=== PATIENT | male | born 1970 | race Two or more races ===

== ENCOUNTER 2018-08-03 17:10 | Emergency (ER) | payer SELFPAY ==
[~2018-08-03] VITALS: Ht 167.6 cm; Wt 90.0 kg
[2018-08-03] MEDS ORDERED: COLCHICINE 0.6 MG TABLET PO ONE ×2 (17:30→19:30)
[2018-08-03] MEDS ORDERED: COLCHICINE 0.6 MG TABLET ONE ×2 (17:47→18:38)
[2018-08-03] MEDS ORDERED: LIDOCAINE-MPF 1%, 5ML ONE (18:07)
[2018-08-03] MEDS ORDERED: LIDOCAINE-MPF 1%, 5ML INFIL ONE (18:30)
--- NOTE | 2018-08-03 18:40 | NUR ---
Colchicine 0.6mg administered po x1 now as ordered by Мария Junior verbal order read back and verified.
--- NOTE | 2018-08-03 19:15 | NUR ---
report received from ESE Goldstein. pt resting on gurney, ice pack in place to rt knee. pt a&o, resps even and unlabored. awaiting lab results at this time.
--- NOTE | 2018-08-03 19:35 | NUR ---
report to break ESE Estrella.
[2018-08-03 20:24] VITALS: BP 119/75
--- NOTE | 2018-08-03 20:33 | NUR ---
pt given dc instructions and script. amber bandage applied by jeanine li cms intact s/p wrap. pt given fitted crutches, demonstrates appropriate use. pt a&o, resps even and unlabored. pt given dc instructions and script, educated regarding colcrys rx. pt amb to dc desk with crutch gait, accompanied by family. no complaint and nadn at dc.
--- NOTE | 2018-08-04 07:46 | NUR ---
NOTIFIED BY LAB OF CHANGE IN SYNOVIAL CRYSTAL RESULTS. ED MD MEEK MADE AWARE. PT TREATED FOR GOUT BY ED RENETTA, PER ED , PT TREATED APPROPRIATELY. NO FURTHER FOLLOW-UP REQUIRED PER DR. MEEK.
== END 2018-08-03 20:34 | disposition home or self-care (01) ==
LOC: ED 18:26
DX: M13.161 Monoarthritis, not elsewhere classified, right knee (principal); M25.461 Effusion, right knee
CPT/HCPCS: 20610; 85810; 87070; 87075; 87205; 89050; 89060; 99284

== ENCOUNTER 2019-09-21 13:04 | Inpatient (IN) | payer BC, OTHER ==
[~2019-09-21] VITALS: Ht 167.6 cm; Wt 108.7 kg
--- NOTE | 2019-09-21 13:30 | NUR ---
PT WITH SORE THROAT AND COUGH X 2 MONTHS. PT DENIES FEVERS. NO REPORTED SICK CONTACTS.
[2019-09-21] MEDS ORDERED: KETOROLAC 30 MG/1 ML ONE (13:39)
[2019-09-21] MEDS ORDERED: DEXAMETHASONE 4 MG/ML, 5ML ONE (13:39)
[2019-09-21] MEDS ORDERED: SODIUM CHLORIDE FLUSH 10ML SYR IVF ONE (14:00)
[2019-09-21] MEDS ORDERED: KETOROLAC 30 MG/1 ML IVPush ONE (14:00)
[2019-09-21] MEDS ORDERED: SODIUM CHLORIDE 0.9% 1,000ML IVBOLUS ONE (14:00)
[2019-09-21] MEDS ORDERED: DEXAMETHASONE 4 MG/ML, 1ML IV ONE (14:00)
[2019-09-21 14:08] LABS: BASOPHILS # (AUTO) 0.04 x10^3/uL (0-0.1); BASOPHILS % (AUTO) 0 % (0-1); EOSINOPHILS % (AUTO) 0 % (1-7); LYMPHOCYTES # (AUTO) 1.17 x10^3/uL (1-3.4); LYMPHOCYTES % (AUTO) 8 % (22-44); MD NO; MEAN CORPUSCULAR HEMOGLOBIN 28.9 pg (27.5-34.5); MEAN CORPUSCULAR HGB CONC 33.2 g/dL (33.2-36.2); MEAN CORPUSCULAR VOLUME 86.9 fL (81-97); MEAN PLATELET VOLUME 8.7 fL (7.4-10.4); MONOCYTES % (AUTO) 5 % (2-9); NEUTROPHILS # (AUTO) 13.61 x10^3/uL (1.8-6.8); NEUTROPHILS % (AUTO) 88 % (42-75); PLATELET COUNT 155 x10^3/uL (130-400); RED BLOOD COUNT 5.95 x10^6/uL (4.38-5.82); RED CELL DISTRIBUTION WIDTH 13.6 % (9.4-14.8)
[2019-09-21 14:20] LABS: ALBUMIN 3.3 g/dL (3.4-5.0); ANION GAP 10 mmol/L (5-15); CALCIUM 8.3 mg/dL (8.5-10.1); CHLORIDE 100 mmol/L (98-107); CREATININE 1.45 mg/dL (0.7-1.3)
[2019-09-21] MEDS ORDERED: AMPICILLIN/SULBACTAM 3 GM in SODIUM CHLORIDE 0.9% 100 ML IV ONE (15:00)
--- NOTE | 2019-09-21 15:54 | NUR ---
PT TO IMAGING AT THIS TIME
[2019-09-21] MEDS ORDERED: OMNIPAQUE 350 MG/ML, 100ML BOTTLE ONE (16:13)
[2019-09-21] MEDS ORDERED: SODIUM CHLORIDE 0.9% 1,000 ML IV SCH (17:55)
[2019-09-21] MEDS ORDERED: BISACODYL 10 MG SUPP PR PRN (18:00)
[2019-09-21] MEDS ORDERED: ONDANSETRON 2MG/ML, 2ML IVPush PRN (18:00)
--- NOTE | 2019-09-21 18:40 | NUR ---
PT TO BE ADMITTED, PT UPDAED ON POC BY ERMD. MEDICATED PER MAR, NAD NOTED
--- NOTE | 2019-09-21 18:55 | NUR ---
report from ESE faye
--- NOTE | 2019-09-21 19:00 | NUR ---
PT INFORMED OF NPO STATUS. PT VERBALIZED UNDERSTANDING. PT UP TO BATHROOM INDEPENDENTLY WITH STEADY GAIT.
[2019-09-21] MEDS: AMPICILLIN/SULBACTAM 3 GM in SODIUM CHLORIDE 0.9% 100 ML IV SCH (19:09)
--- NOTE | 2019-09-21 19:40 | NUR ---
REPORT TO FLOOR ESE HEBERT
[2019-09-21 20:39] VITALS: BP 150/106
[2019-09-21] MEDS: KETOROLAC 30 MG/1 ML IV PRN (20:48)
[2019-09-21] MEDS: DEXAMETHASONE 4 MG/ML, 1ML IVPush SCH (21:04)
[2019-09-22] MEDS: KETOROLAC 30 MG/1 ML IV PRN ×2 (03:10→10:51)
[2019-09-22] MEDS: DEXAMETHASONE 4 MG/ML, 1ML IVPush SCH ×4 (03:10→21:20)
[2019-09-22 03:22] VITALS: BP 142/87
[2019-09-22] MEDS: AMPICILLIN/SULBACTAM 3 GM in SODIUM CHLORIDE 0.9% 100 ML IV SCH ×5 (06:15→23:47)
[2019-09-22 06:25] LABS: MEAN CORPUSCULAR HGB CONC 32.8 g/dL (33.2-36.2); MEAN CORPUSCULAR VOLUME 88.3 fL (81-97); MEAN PLATELET VOLUME 8.3 fL (7.4-10.4); PLATELET COUNT 157 x10^3/uL (130-400); RED BLOOD COUNT 5.83 x10^6/uL (4.38-5.82); RED CELL DISTRIBUTION WIDTH 13.4 % (9.4-14.8)
[2019-09-22 06:39] LABS: ANION GAP 8 mmol/L (5-15); CALCIUM 8.4 mg/dL (8.5-10.1); CHLORIDE 101 mmol/L (98-107)
[2019-09-22 06:40] LABS: CREATININE 1.36 mg/dL (0.7-1.3)
[2019-09-22 07:27] LABS: MD YES
[2019-09-22 07:29] LABS: BAND#(MANUAL) 5.74 x10^3/uL; BANDS%(MANUAL) 31 % (0-7); LYMPH#(MANUAL) 0.74 x10^3/uL (1-3.4); LYMPHS% (MANUAL) 4 % (22-44); METAMYELOCYTES# (MANUAL) 0.56 x10^3/uL (0-0); METAMYELOCYTES% (MANUAL) 3 % (0-1); SEG#(MANUAL) 11.47 x10^3/uL (1.8-6.8); SEGS% (MANUAL) 62 % (42-75)
[2019-09-22 07:30] LABS: <PLATELET ESTIMATE> ADEQUATE; <PLT MORPHOLOGY> NORMAL PLT MORPH; <RBC MORPHOLOGY> NORMAL
[2019-09-22 09:56] VITALS: BP 119/76
[2019-09-22] MEDS: INSULIN LISPRO 100 UNITS/ML, PEN SQ-INSULIN SCH ×3 (13:05→21:21)
[2019-09-22 13:33] VITALS: BP 139/74
[2019-09-22] MEDS: CLINDAMYCIN PMX 900MG/50ML 50 ML IV SCH ×2 (13:40→21:20)
[2019-09-22] MEDS: SODIUM CHLORIDE 0.9% 1,000 ML IV SCH (17:30)
[2019-09-22 21:29] VITALS: BP 127/84
[2019-09-23 00:40] VITALS: BP 126/95
[2019-09-23] MEDS: KETOROLAC 30 MG/1 ML IV PRN (01:16)
[2019-09-23] MEDS: DEXAMETHASONE 4 MG/ML, 1ML IVPush SCH ×4 (03:04→18:47)
[2019-09-23] MEDS: SODIUM CHLORIDE 0.9% 1,000 ML IV SCH ×2 (03:07→16:17)
[2019-09-23] MEDS: CLINDAMYCIN PMX 900MG/50ML 50 ML IV SCH ×3 (05:16→21:29)
[2019-09-23] MEDS: AMPICILLIN/SULBACTAM 3 GM in SODIUM CHLORIDE 0.9% 100 ML IV SCH ×4 (06:18→23:06)
[2019-09-23 06:23] LABS: BASOPHILS # (AUTO) 0.08 x10^3/uL (0-0.1); BASOPHILS % (AUTO) 1 % (0-1); EOSINOPHILS # (AUTO) 0.08 x10^3/uL (0-0.4); EOSINOPHILS % (AUTO) 1 % (1-7); LYMPHOCYTES # (AUTO) 1.16 x10^3/uL (1-3.4); LYMPHOCYTES % (AUTO) 7 % (22-44); MD NO; MEAN CORPUSCULAR HEMOGLOBIN 28.8 pg (27.5-34.5); MEAN CORPUSCULAR VOLUME 87.2 fL (81-97); MEAN PLATELET VOLUME 9.1 fL (7.4-10.4); MONOCYTES # (AUTO) 0.31 x10^3/uL (0.2-0.8); MONOCYTES % (AUTO) 2 % (2-9); NEUTROPHILS % (AUTO) 91 % (42-75); PLATELET COUNT 154 x10^3/uL (130-400); RED BLOOD COUNT 5.46 x10^6/uL (4.38-5.82); RED CELL DISTRIBUTION WIDTH 13.5 % (9.4-14.8)
[2019-09-23 06:30] LABS: ANION GAP 6 mmol/L (5-15); CALCIUM 8.1 mg/dL (8.5-10.1); CHLORIDE 106 mmol/L (98-107); CREATININE 1.02 mg/dL (0.7-1.3)
[2019-09-23] MEDS: INSULIN LISPRO 100 UNITS/ML, PEN SQ-INSULIN SCH ×4 (07:37→21:30)
[2019-09-23 08:33] VITALS: BP 127/94
[2019-09-23 13:40] VITALS: BP 130/83
[2019-09-23 19:07] VITALS: BP 130/92
[2019-09-24] MEDS: DEXAMETHASONE 4 MG/ML, 1ML IVPush SCH ×4 (01:21→19:56)
[2019-09-24 01:26] VITALS: BP 139/86
[2019-09-24] MEDS: AMPICILLIN/SULBACTAM 3 GM in SODIUM CHLORIDE 0.9% 100 ML IV SCH ×4 (04:57→22:23)
[2019-09-24] MEDS: SODIUM CHLORIDE 0.9% 1,000 ML IV SCH (05:30)
[2019-09-24] MEDS: CLINDAMYCIN PMX 900MG/50ML 50 ML IV SCH ×3 (05:34→21:17)
[2019-09-24] MEDS: INSULIN LISPRO 100 UNITS/ML, PEN SQ-INSULIN SCH ×4 (07:00→20:31)
[2019-09-24 07:06] LABS: MEAN CORPUSCULAR HGB CONC 33.3 g/dL (33.2-36.2); MEAN PLATELET VOLUME 8.6 fL (7.4-10.4); PLATELET COUNT 193 x10^3/uL (130-400); RED BLOOD COUNT 5.52 x10^6/uL (4.38-5.82); RED CELL DISTRIBUTION WIDTH 13.7 % (9.4-14.8)
[2019-09-24 07:22] LABS: BASOPHILS # (AUTO) 0.02 x10^3/uL (0-0.1); BASOPHILS % (AUTO) 0 % (0-1); EOSINOPHILS # (AUTO) 0.01 x10^3/uL (0-0.4); EOSINOPHILS % (AUTO) 0 % (1-7); LYMPHOCYTES % (AUTO) 5 % (22-44); MD SCAN; MONOCYTES # (AUTO) 0.42 x10^3/uL (0.2-0.8); MONOCYTES % (AUTO) 2 % (2-9); NEUTROPHILS # (AUTO) 17.06 x10^3/uL (1.8-6.8); NEUTROPHILS % (AUTO) 92 % (42-75)
[2019-09-24 08:43] VITALS: BP 129/92
[2019-09-24] MEDS ORDERED: NYSTATIN 500,000 UNITS/5 ML UDC ONE (12:53)
[2019-09-24] MEDS: NYSTATIN 500,000 UNITS/5 ML UDC PO SCH ×2 (13:01→21:17)
[2019-09-24 14:23] VITALS: BP 133/92
[2019-09-24 19:58] VITALS: BP 142/99
[2019-09-24] MEDS ORDERED: GUAIFENESIN/DM 200-20MG, 10ML UDC PO PRN (22:00)
[2019-09-25 00:31] VITALS: BP 133/79
[2019-09-25] MEDS: DEXAMETHASONE 4 MG/ML, 1ML IVPush SCH ×3 (02:05→14:27)
[2019-09-25] MEDS: AMPICILLIN/SULBACTAM 3 GM in SODIUM CHLORIDE 0.9% 100 ML IV SCH ×3 (04:08→17:47)
[2019-09-25] MEDS: CLINDAMYCIN PMX 900MG/50ML 50 ML IV SCH ×3 (05:24→20:02)
[2019-09-25] MEDS: NYSTATIN 500,000 UNITS/5 ML UDC PO SCH ×4 (05:29→20:02)
[2019-09-25 06:08] LABS: MEAN CORPUSCULAR HEMOGLOBIN 29.3 pg (27.5-34.5); MEAN CORPUSCULAR HGB CONC 33.5 g/dL (33.2-36.2); MEAN CORPUSCULAR VOLUME 87.6 fL (81-97); MEAN PLATELET VOLUME 8.1 fL (7.4-10.4); PLATELET COUNT 212 x10^3/uL (130-400); RED BLOOD COUNT 5.57 x10^6/uL (4.38-5.82); RED CELL DISTRIBUTION WIDTH 13.6 % (9.4-14.8)
[2019-09-25 06:36] LABS: MD YES
[2019-09-25 06:38] LABS: <PLATELET ESTIMATE> ADEQUATE; <PLT MORPHOLOGY> NORMAL PLT MORPH; <RBC MORPHOLOGY> NORMAL; BAND#(MANUAL) 0.61 x10^3/uL; BANDS%(MANUAL) 3 % (0-7); LYMPH#(MANUAL) 1.21 x10^3/uL (1-3.4); LYMPHS% (MANUAL) 6 % (22-44); MONOS% (MANUAL) 2 % (2-9); MYELOCYTES% (MANUAL) 1 % (0-0); SEG#(MANUAL) 17.78 x10^3/uL (1.8-6.8); SEGS% (MANUAL) 88 % (42-75)
[2019-09-25 07:24] VITALS: BP 131/94
[2019-09-25 07:53] LABS: HCT (SEDRATE) 48.8 % (39.2-51.8)
[2019-09-25 07:55] LABS: BASOPHILS # (AUTO) 0.07 x10^3/uL (0-0.1); BASOPHILS % (AUTO) 0 % (0-1); EOSINOPHILS % (AUTO) 0 % (1-7); LYMPHOCYTES # (AUTO) 0.92 x10^3/uL (1-3.4); LYMPHOCYTES % (AUTO) 5 % (22-44); MONOCYTES # (AUTO) 0.45 x10^3/uL (0.2-0.8); MONOCYTES % (AUTO) 2 % (2-9); NEUTROPHILS # (AUTO) 18.77 x10^3/uL (1.8-6.8); NEUTROPHILS % (AUTO) 93 % (42-75)
[2019-09-25] MEDS: INSULIN LISPRO 100 UNITS/ML, PEN SQ-INSULIN SCH ×2 (08:07→11:32)
[2019-09-25 13:04] VITALS: BP 128/83
[2019-09-25 19:59] VITALS: BP 128/92
[2019-09-26 00:15] VITALS: BP 122/81
[2019-09-26] MEDS: AMPICILLIN/SULBACTAM 3 GM in SODIUM CHLORIDE 0.9% 100 ML IV SCH ×4 (00:15→17:59)
[2019-09-26] MEDS: CLINDAMYCIN PMX 900MG/50ML 50 ML IV SCH (04:03)
[2019-09-26] MEDS: NYSTATIN 500,000 UNITS/5 ML UDC PO SCH ×4 (05:25→19:32)
[2019-09-26 06:18] LABS: ANION GAP 5 mmol/L (5-15); CALCIUM 8.2 mg/dL (8.5-10.1); CHLORIDE 103 mmol/L (98-107); MEAN CORPUSCULAR VOLUME 87.7 fL (81-97); MEAN PLATELET VOLUME 8.2 fL (7.4-10.4); PLATELET COUNT 243 x10^3/uL (130-400); RED BLOOD COUNT 5.67 x10^6/uL (4.38-5.82); RED CELL DISTRIBUTION WIDTH 13.5 % (9.4-14.8)
[2019-09-26 06:19] LABS: CREATININE 1.18 mg/dL (0.7-1.3)
[2019-09-26 07:10] LABS: BASOPHILS # (AUTO) 0.04 x10^3/uL (0-0.1); BASOPHILS % (AUTO) 0 % (0-1); EOSINOPHILS # (AUTO) 0.01 x10^3/uL (0-0.4); EOSINOPHILS % (AUTO) 0 % (1-7); LYMPHOCYTES # (AUTO) 1.47 x10^3/uL (1-3.4); LYMPHOCYTES % (AUTO) 8 % (22-44); MD SCAN; MONOCYTES # (AUTO) 0.19 x10^3/uL (0.2-0.8); MONOCYTES % (AUTO) 1 % (2-9); NEUTROPHILS # (AUTO) 16.95 x10^3/uL (1.8-6.8); NEUTROPHILS % (AUTO) 91 % (42-75)
[2019-09-26] MEDS: DOXYCYCLINE 100MG TABLET PO SCH ×2 (09:38→20:20)
[2019-09-26 09:48] VITALS: BP 103/66
[2019-09-26] MEDS: ENOXAPARIN 40 MG/0.4 ML SQ SCH (13:30)
[2019-09-26 14:30] VITALS: BP 119/75
[2019-09-26 20:12] VITALS: BP 126/78
[2019-09-26] MEDS: ACETAMINOPHEN 325 MG TABLET PO PRN (23:04)
[2019-09-27] MEDS: AMPICILLIN/SULBACTAM 3 GM in SODIUM CHLORIDE 0.9% 100 ML IV SCH ×4 (00:03→18:12)
[2019-09-27 00:07] VITALS: BP 101/66
[2019-09-27] MEDS: NYSTATIN 500,000 UNITS/5 ML UDC PO SCH ×4 (05:38→22:01)
[2019-09-27 08:12] VITALS: BP 117/58
[2019-09-27] MEDS: DOXYCYCLINE 100MG TABLET PO SCH ×2 (10:12→22:01)
[2019-09-27] MEDS: ACETAMINOPHEN 325 MG TABLET PO PRN ×2 (10:15→22:01)
[2019-09-27] MEDS: ENOXAPARIN 40 MG/0.4 ML SQ SCH (12:26)
[2019-09-27 15:33] VITALS: BP 96/65
[2019-09-27 19:17] VITALS: BP 118/72
[2019-09-27] MEDS: OXYcodone IR 5MG TABLET PO PRN (22:01)
[2019-09-28 01:21] VITALS: BP 109/69
[2019-09-28] MEDS: AMPICILLIN/SULBACTAM 3 GM in SODIUM CHLORIDE 0.9% 100 ML IV SCH ×4 (01:51→20:20)
[2019-09-28 05:21] LABS: MEAN CORPUSCULAR HGB CONC 33.1 g/dL (33.2-36.2); MEAN CORPUSCULAR VOLUME 87.5 fL (81-97); MEAN PLATELET VOLUME 8.2 fL (7.4-10.4); PLATELET COUNT 218 x10^3/uL (130-400); RED BLOOD COUNT 5.35 x10^6/uL (4.38-5.82); RED CELL DISTRIBUTION WIDTH 13.5 % (9.4-14.8)
[2019-09-28 06:02] LABS: BASOPHILS % (AUTO) 0 % (0-1); EOSINOPHILS # (AUTO) 0.22 x10^3/uL (0-0.4); EOSINOPHILS % (AUTO) 2 % (1-7); LYMPHOCYTES # (AUTO) 1.83 x10^3/uL (1-3.4); LYMPHOCYTES % (AUTO) 12 % (22-44); MD SCAN; MONOCYTES % (AUTO) 1 % (2-9); NEUTROPHILS % (AUTO) 86 % (42-75)
[2019-09-28] MEDS: NYSTATIN 500,000 UNITS/5 ML UDC PO SCH ×6 (06:48→20:28)
[2019-09-28] MEDS: ACETAMINOPHEN 325 MG TABLET PO PRN ×2 (06:53→20:20)
[2019-09-28 08:02] VITALS: BP 112/82
[2019-09-28] MEDS: DOXYCYCLINE 100MG TABLET PO SCH ×2 (08:06→20:20)
[2019-09-28 12:12] VITALS: BP 126/80
[2019-09-28] MEDS ORDERED: ASCORBIC ACID 500 MG TABLET PO SCH (12:30)
[2019-09-28] MEDS ORDERED: ENOXAPARIN 100 MG/ML ONE (12:54)
[2019-09-28] MEDS: MULTIVITAMIN 1 TABLET PO SCH (13:04)
[2019-09-28] MEDS: methylPREDNISolone SOD SUCC 40 MG/ML IV SCH (13:04)
[2019-09-28] MEDS: ASCORBIC ACID 500 MG TABLET PO SCH ×3 (13:04→20:20)
[2019-09-28] MEDS: ZINC SULFATE 220 MG CAPSULE PO SCH (13:04)
[2019-09-28] MEDS: ENOXAPARIN 100 MG/ML SQ SCH (13:05)
[2019-09-28] MEDS: CHOLECALCIFEROL 400 UNITS TABLET PO SCH (13:05)
[2019-09-28 14:25] LABS: INTERNATIONAL NORMALIZED RATIO 0.94 (0.93-1.1)
[2019-09-28 14:29] LABS: ALANINE AMINOTRANSFERASE 311 U/L (12-78); ALBUMIN 2.3 g/dL (3.4-5.0); ANION GAP 4 mmol/L (5-15); CALCIUM 8.5 mg/dL (8.5-10.1); CHLORIDE 102 mmol/L (98-107); CREATININE 0.95 mg/dL (0.7-1.3)
[2019-09-28 14:31] LABS: ALKALINE PHOSPHATASE 141 U/L (45-117); BILIRUBIN,TOTAL 0.9 mg/dL (0.2-1.0); TOTAL PROTEIN 8.2 g/dL (6.4-8.2)
[2019-09-28] MEDS ORDERED: REMDESIVIR 200 MG in SODIUM CHLORIDE 0.9% 250 ML IVPB ONE (16:00)
[2019-09-28] MEDS: CHOLECALCIFEROL 1,000 UNIT TABLET PO SCH (16:33)
[2019-09-28] MEDS: MELATONIN 5 MG TABLET PO SCH (20:21)
[2019-09-28] MEDS: OXYcodone IR 5MG TABLET PO PRN (20:27)
[2019-09-28 20:32] VITALS: BP 120/79
[2019-09-29] MEDS: ENOXAPARIN 100 MG/ML SQ SCH ×2 (01:54→14:16)
[2019-09-29 01:55] VITALS: BP 120/82
[2019-09-29 05:17] LABS: PLATELET COUNT 216 x10^3/uL (130-400)
[2019-09-29] MEDS: NYSTATIN 500,000 UNITS/5 ML UDC PO SCH ×4 (05:19→21:00)
[2019-09-29 05:25] LABS: INTERNATIONAL NORMALIZED RATIO 0.97 (0.93-1.1); PROTHROMBIN TIME 10.3 Seconds (9.6-11.5)
[2019-09-29 05:27] LABS: ALANINE AMINOTRANSFERASE 298 U/L (12-78); ALBUMIN 2.1 g/dL (3.4-5.0); ANION GAP 6 mmol/L (5-15); CALCIUM 8.6 mg/dL (8.5-10.1); CHLORIDE 102 mmol/L (98-107); CREATININE 0.91 mg/dL (0.7-1.3)
[2019-09-29 05:29] LABS: ALKALINE PHOSPHATASE 134 U/L (45-117); BILIRUBIN,TOTAL 0.7 mg/dL (0.2-1.0); TOTAL PROTEIN 8.4 g/dL (6.4-8.2)
[2019-09-29] MEDS: AMPICILLIN/SULBACTAM 3 GM in SODIUM CHLORIDE 0.9% 100 ML IV SCH ×4 (05:38→21:23)
[2019-09-29] MEDS ORDERED: CHOLECALCIFEROL 400 UNITS TABLET PO SCH (09:00)
[2019-09-29] MEDS: MULTIVITAMIN 1 TABLET PO SCH (09:05)
[2019-09-29] MEDS: ASCORBIC ACID 500 MG TABLET PO SCH ×3 (09:05→21:01)
[2019-09-29] MEDS: ZINC SULFATE 220 MG CAPSULE PO SCH (09:05)
[2019-09-29] MEDS: DOXYCYCLINE 100MG TABLET PO SCH ×2 (09:05→21:01)
[2019-09-29 09:17] VITALS: BP 120/79
[2019-09-29 12:29] VITALS: BP 116/82
[2019-09-29] MEDS: methylPREDNISolone SOD SUCC 40 MG/ML IV SCH ×2 (14:15)
[2019-09-29] MEDS ORDERED: REMDESIVIR 100 MG in SODIUM CHLORIDE 0.9% 250 ML IVPB SCH (16:00)
[2019-09-29] MEDS: CHOLECALCIFEROL 1,000 UNIT TABLET PO SCH (17:52)
[2019-09-29 20:30] VITALS: BP 114/74
[2019-09-29] MEDS: MELATONIN 5 MG TABLET PO SCH (21:01)
[2019-09-29] MEDS: REMDESIVIR 100 MG in SODIUM CHLORIDE 0.9% 250 ML IVPB SCH (22:48)
[2019-09-30 01:19] VITALS: BP 106/59
[2019-09-30] MEDS: methylPREDNISolone SOD SUCC 40 MG/ML IV SCH ×2 (02:22→15:00)
[2019-09-30] MEDS: ENOXAPARIN 100 MG/ML SQ SCH (02:23)
[2019-09-30] MEDS: AMPICILLIN/SULBACTAM 3 GM in SODIUM CHLORIDE 0.9% 100 ML IV SCH ×4 (03:13→21:31)
[2019-09-30] MEDS: NYSTATIN 500,000 UNITS/5 ML UDC PO SCH ×4 (04:48→21:32)
[2019-09-30 08:57] LABS: INTERNATIONAL NORMALIZED RATIO 3.35 (0.93-1.1)
[2019-09-30 08:58] LABS: PLATELET COUNT 227 x10^3/uL (130-400)
[2019-09-30] MEDS: DOXYCYCLINE 100MG TABLET PO SCH ×2 (09:08→21:32)
[2019-09-30] MEDS: MULTIVITAMIN 1 TABLET PO SCH (09:08)
[2019-09-30] MEDS: ZINC SULFATE 220 MG CAPSULE PO SCH (09:08)
[2019-09-30] MEDS: ASCORBIC ACID 500 MG TABLET PO SCH ×3 (09:08→21:32)
[2019-09-30 09:17] LABS: ALANINE AMINOTRANSFERASE 286 U/L (12-78); ALBUMIN 2.3 g/dL (3.4-5.0); ANION GAP 7 mmol/L (5-15); CALCIUM 8.5 mg/dL (8.5-10.1); CHLORIDE 105 mmol/L (98-107); CREATININE 0.71 mg/dL (0.7-1.3)
[2019-09-30 09:19] LABS: ALKALINE PHOSPHATASE 135 U/L (45-117); BILIRUBIN,TOTAL 0.7 mg/dL (0.2-1.0); TOTAL PROTEIN 7.8 g/dL (6.4-8.2)
[2019-09-30 10:56] VITALS: BP 125/83
[2019-09-30 14:12] VITALS: BP 104/72
[2019-09-30] MEDS: CHOLECALCIFEROL 1,000 UNIT TABLET PO SCH (15:00)
[2019-09-30] MEDS: ENOXAPARIN 120MG/0.8ML SQ SCH (15:01)
[2019-09-30 19:33] VITALS: BP 133/90
[2019-09-30] MEDS: MELATONIN 5 MG TABLET PO SCH (21:32)
[2019-09-30] MEDS: REMDESIVIR 100 MG in SODIUM CHLORIDE 0.9% 250 ML IVPB SCH (22:47)
[2019-10-01] MEDS: AMPICILLIN/SULBACTAM 3 GM in SODIUM CHLORIDE 0.9% 100 ML IV SCH ×4 (02:45→21:47)
[2019-10-01 02:49] VITALS: BP 127/81
[2019-10-01] MEDS: NYSTATIN 500,000 UNITS/5 ML UDC PO SCH ×4 (06:00→21:49)
[2019-10-01] MEDS: methylPREDNISolone SOD SUCC 40 MG/ML IV SCH ×2 (06:26→17:46)
[2019-10-01] MEDS: ENOXAPARIN 120MG/0.8ML SQ SCH ×2 (06:26→17:46)
[2019-10-01 06:48] LABS: PLATELET COUNT 243 x10^3/uL (130-400)
[2019-10-01 06:53] LABS: ALBUMIN 2.2 g/dL (3.4-5.0); ANION GAP 4 mmol/L (5-15); CALCIUM 8.6 mg/dL (8.5-10.1); CHLORIDE 104 mmol/L (98-107); INTERNATIONAL NORMALIZED RATIO 0.99 (0.93-1.1); PROTHROMBIN TIME 10.5 Seconds (9.6-11.5)
[2019-10-01 06:58] LABS: ALANINE AMINOTRANSFERASE 217 U/L (12-78); ALKALINE PHOSPHATASE 109 U/L (45-117); BILIRUBIN,TOTAL 0.6 mg/dL (0.2-1.0); CREATININE 0.82 mg/dL (0.7-1.3); TOTAL PROTEIN 7.7 g/dL (6.4-8.2)
[2019-10-01 07:35] VITALS: BP 121/84
[2019-10-01] MEDS: ASCORBIC ACID 500 MG TABLET PO SCH ×3 (08:48→21:48)
[2019-10-01] MEDS: DOXYCYCLINE 100MG TABLET PO SCH ×2 (08:48→21:48)
[2019-10-01] MEDS: PHYTONADIONE 10 MG/ML, 1ML SQ SCH (08:48)
[2019-10-01] MEDS: ZINC SULFATE 220 MG CAPSULE PO SCH (08:48)
[2019-10-01] MEDS: MULTIVITAMIN 1 TABLET PO SCH (08:48)
[2019-10-01 13:12] VITALS: BP 108/73
[2019-10-01] MEDS: CHOLECALCIFEROL 1,000 UNIT TABLET PO SCH (15:40)
[2019-10-01 20:44] VITALS: BP 114/79
[2019-10-01] MEDS: MELATONIN 5 MG TABLET PO SCH (21:48)
[2019-10-01] MEDS: REMDESIVIR 100 MG in SODIUM CHLORIDE 0.9% 250 ML IVPB SCH (23:47)
[2019-10-02 02:41] VITALS: BP 111/81
[2019-10-02] MEDS: AMPICILLIN/SULBACTAM 3 GM in SODIUM CHLORIDE 0.9% 100 ML IV SCH ×3 (02:57→16:17)
[2019-10-02 06:13] LABS: PLATELET COUNT 294 x10^3/uL (130-400)
[2019-10-02 06:23] LABS: INTERNATIONAL NORMALIZED RATIO 0.98 (0.93-1.1); PROTHROMBIN TIME 10.4 Seconds (9.6-11.5)
[2019-10-02 06:28] LABS: ALBUMIN 2.3 g/dL (3.4-5.0); ANION GAP 5 mmol/L (5-15); CALCIUM 8.6 mg/dL (8.5-10.1); CHLORIDE 102 mmol/L (98-107)
[2019-10-02] MEDS: NYSTATIN 500,000 UNITS/5 ML UDC PO SCH ×3 (06:28→16:00)
[2019-10-02] MEDS: ENOXAPARIN 120MG/0.8ML SQ SCH ×2 (06:28→15:36)
[2019-10-02] MEDS: methylPREDNISolone SOD SUCC 40 MG/ML IV SCH ×2 (06:28→16:15)
[2019-10-02 06:33] LABS: ALANINE AMINOTRANSFERASE 189 U/L (12-78); ALKALINE PHOSPHATASE 103 U/L (45-117); BILIRUBIN,TOTAL 0.4 mg/dL (0.2-1.0); CREATININE 0.84 mg/dL (0.7-1.3); TOTAL PROTEIN 8.2 g/dL (6.4-8.2)
[2019-10-02 08:00] VITALS: BP 122/77
[2019-10-02] MEDS: PHYTONADIONE 10 MG/ML, 1ML SQ SCH (09:00)
[2019-10-02] MEDS: DOXYCYCLINE 100MG TABLET PO SCH (09:00)
[2019-10-02 10:28] VITALS: BP 122/77
[2019-10-02] MEDS: MULTIVITAMIN 1 TABLET PO SCH (11:19)
[2019-10-02] MEDS: ASCORBIC ACID 500 MG TABLET PO SCH ×2 (11:19→16:00)
[2019-10-02] MEDS: ZINC SULFATE 220 MG CAPSULE PO SCH (11:20)
[2019-10-02] MEDS ORDERED: DOXYCYCLINE 100MG CAP ONE (11:25)
[2019-10-02 14:09] VITALS: BP 128/80
[2019-10-02] MEDS ORDERED: AMOX1TAB64 PO (15:37)
[2019-10-02] MEDS ORDERED: METH4TAB PO (15:37)
[2019-10-02] MEDS ORDERED: CHOL10003 PO (15:37)
[2019-10-02] MEDS ORDERED: DOXY100T PO (15:37)
[2019-10-02] MEDS ORDERED: ZINC220C7 PO (15:37)
[2019-10-02] MEDS ORDERED: MELA5TAB14 PO (15:37)
[2019-10-02] MEDS ORDERED: ASCO500T9 PO (15:37)
[2019-10-02] MEDS ORDERED: ASCORBIC ACID 250 MG TAB ONE (16:12)
[2019-10-02] MEDS: CHOLECALCIFEROL 1,000 UNIT TABLET PO SCH (16:16)
== END 2019-10-02 17:58 | disposition home or self-care (01) | DRG 871 ==
LOC: ED 13:28 → EDIP 17:55 → 4NE 20:02
PROVIDERS: ADMIT Internal Medicine; ATTEND Internal Medicine
DX: A41.89 Other specified sepsis (principal); J12.89 Other viral pneumonia; J96.21 Acute and chronic respiratory failure with hypoxia; U07.1 COVID-19; E87.1 Hypo-osmolality and hyponatremia; J36 Peritonsillar abscess; D68.9 Coagulation defect, unspecified; E11.65 Type 2 diabetes mellitus with hyperglycemia; E66.9 Obesity, unspecified; Z78.9 Other specified health status; K11.21 Acute sialoadenitis; Z68.38 Body mass index [BMI] 38.0-38.9, adult; N28.9 Disorder of kidney and ureter, unspecified
CPT/HCPCS: 36415; 70491; 71045; 80048; 80053; 82040; 82962; 83036; 83605; 83615; 84145; 84443; 85014; 85018; 85025; 85049; 85379; 85610; 85651; 86140; 86308; 87040; 87081; 87147; 87635; 87880; 96361; 96374; 96375; 99285; G0378; J0295; J1100; J1650; J1885; J3430; Q9967; J1815; J2920; J7030; J7050; U0001-CS